=== PATIENT | male | born 1955 | race Caucasian/White ===

== ENCOUNTER 2017-03-19 10:11 | Emergency (ER) | payer OTHER ==
[2017-03-19] MEDS ORDERED: IV NORMAL SALINE 1,000ML 1,000 ML IV ONE (10:45)
[2017-03-19] MEDS ORDERED: KETOROLAC 30 MG/ML VIAL. IV ONE (10:45)
--- NOTE | 2017-03-19 10:45 | ED.ADGEN ---
Past History Past Medical History: Other Past Surgical History: No Surgical History Alcohol Use: None Drug Use: None Adult General Chief Complaint Chief Complaint R flank pain HPI HPI Patient is a 61 year old male who presents with R flank pain, noted 2 days ago when he woke and noted R flank pain with radiation to testicles, associated nausea but no vomiting. The pain is now localized to R flank, no radiation, and no nausea. Pt has had fluctuations of the pain, took home leftover hydrocodone and Tramadol with minimal relief. Decreased po intake, decreased urination, no BM since pain started, denies fevers, no noted hematuria. Pt's had h/o kidney stones in past, no intervention required but symptoms at this time is very similar to prior stones. Pt denies h/o HTN, pcp is Dr. Pierce. Review of Systems Review of Systems Constitutional: Denies fever or chills [] Eyes: Denies change in visual acuity, redness, or eye pain [] HENT: Denies nasal congestion or sore throat [] Respiratory: Denies cough or shortness of breath [] Cardiovascular: denies chest pain GI: Denies current abdominal pain : per hpi Musculoskeletal: Denies joint pain [] Integument: Denies rash or skin lesions [] Neurologic: Denies headache, focal weakness or sensory changes [] Current Medications Current Medications Current Medications Medications (Trade) Dose Ordered Sig/Tiffanie Start Time Stop Time Status Last Admin Dose Admin Ketorolac Tromethamine (Toradol) 30 mg 1X ONCE 03/19/17 10:45 03/19/17 10:52 DC 03/19/17 10:54 30 MG Ondansetron HCl (Zofran) 4 mg 1X ONCE 03/19/17 11:15 03/19/17 11:16 DC 03/19/17 10:53 4 MG Sodium Chloride 1,000 ml @ 1,000 mls/hr 1X ONCE 03/19/17 10:45 03/19/17 11:44 03/19/17 10:54 1,000 MLS/HR Allergies Allergies Allergies Coded Allergies Type Severity Reaction Last Updated Verified No Known Drug Allergies 03/19/17 No Physical Exam Physical Exam Constitutional: Well developed, well nourished, no acute distress, non-toxic appearance. [] HENT: Normocephalic, atraumatic, bilateral external ears normal, oropharynx moist, no oral exudates, nose normal. [] Eyes: PERRLA, EOMI, conjunctiva normal, no discharge. [] Neck: Normal range of motion, no tenderness, supple, no stridor. [] Cardiovascular:Heart rate regular with regular rhythm, no murmur [] Lungs & Thorax: Bilateral breath sounds clear to auscultation, no wheeze or crackles Abdomen: Bowel sounds normal, soft, no tenderness, no masses, no pulsatile masses. [] Skin: Warm, dry, no erythema, no rash. [] Back: ttp R flank with negative straight leg test, no midline ttp, no erythema or increased warmth, no fluctuance Extremities: No tenderness, no cyanosis, no clubbing, ROM intact, no edema. [] Neurologic: Alert and oriented X 3, normal motor function, normal sensory function, no focal deficits noted. [] Psychologic: Affect normal, judgement normal, mood normal. [] Current Patient Data Vital Signs Vital Signs Date Time Temp Pulse Resp B/P (MAP) Pulse Ox O2 Delivery O2 Flow Rate FiO2 03/19/17 11:24 80 18 148/98 (115) 99 Room Air 03/19/17 10:20 98.1 Lab Results Laboratory Tests Test 03/19/17 10:32 03/19/17 10:38 Urine Collection Type Unknown Urine Color [place] Urine Clarity Clear Urine pH 6.0 Urine Specific [place] 1.020 Urine Protein 30 mg/dl (NEG-TRACE) Urine Glucose (UA) Neg mg/dL (NEG) Urine Ketones (Stick) Trace mg/dL (NEG) Urine Blood Neg (NEG) Urine Nitrite Neg (NEG) Urine Bilirubin Neg (NEG) Urine Urobilinogen Dipstick 1 mg/dL (0.2 mg/dL) Urine Leukocyte Esterase Neg (NEG) Urine RBC Occ /HPF (0-2) Urine WBC Rare /HPF (0-4) Urine Squamous Epithelial Cells Occ /LPF Urine Bacteria 0 /HPF (0-FEW) Urine Mucus Slight /LPF White Blood Count 10.0 x10^3/uL (4.0-11.0) Red Blood Count 4.35 x10^6/uL (4.30-5.70) Hemoglobin 13.0 g/dL (13.0-17.5) Hematocrit 38.1 % (39.0-53.0) L Mean Corpuscular Volume 88 fL (79-100) Mean Corpuscular Hemoglobin 30 pg (25-35) Mean Corpuscular Hemoglobin Concent 34 g/dL (31-37) Red Cell Distribution Width 13.3 % (11.5-14.5) Platelet Count 195 x10^3/uL (140-400) Neutrophils (%) (Auto) 74 % (31-73) H Lymphocytes (%) (Auto) 11 % (24-48) L Monocytes (%) (Auto) 13 % (0-9) H Eosinophils (%) (Auto) 2 % (0-3) Basophils (%) (Auto) 1 % (0-3) Neutrophils # (Auto) 7.4 x10^3uL (1.8-7.7) Lymphocytes # (Auto) 1.1 x10^3/uL (1.0-4.8) Monocytes # (Auto) 1.3 x10^3/uL (0.0-1.1) H Eosinophils # (Auto) 0.2 x10^3/uL (0.0-0.7) Basophils # (Auto) 0.1 x10^3/uL (0.0-0.2) Sodium Level 137 mmol/L (136-145) Potassium Level 3.9 mmol/L (3.5-5.1) Chloride Level 98 mmol/L (98-107) Carbon Dioxide Level 32 mmol/L (21-32) Anion Gap 7 (6-14) Blood Urea Nitrogen 20 mg/dL (8-26) Creatinine 1.4 mg/dL (0.7-1.3) H Estimated GFR (Cockcroft-Gault) 51.7 BUN/Creatinine Ratio 14 (6-20) Glucose Level 106 mg/dL (70-99) H Calcium Level 9.2 mg/dL (8.5-10.1) Total Bilirubin 1.7 mg/dL (0.2-1.0) H Aspartate Amino Transferase (AST) 14 U/L (15-37) L Alanine Aminotransferase (ALT) 18 U/L (16-63) Alkaline Phosphatase 61 U/L (46-116) Total Protein 7.8 g/dL (6.4-8.2) Albumin 3.5 g/dL (3.4-5.0) Albumin/Globulin Ratio 0.8 (1.0-1.7) L EKG EKG [] Radiology/Procedures Radiology/Procedures CT abd/pelvis: Findings: Visualized lung bases are unremarkable. There is a 4 mm stone at the right ureterovesicular junction with mild right-sided hydronephrosis and prominence of the right ureter. Periureteric stranding is noted. There is a mildly prominent lymph node adjacent to the mid right ureter. Findings likely reactive. Small amount of free fluid is seen in the pelvis. The bladder is predominantly decompressed. There is perinephric stranding bilaterally. This is nonspecific. There are multiple small exophytic lesions arising from the right kidney largest in the superior pole measuring 2.3 cm in diameter. Attenuation's characteristics are suggestive of small cysts. No evidence of hydronephrosis or obstructive uropathy is seen on the left. The liver and gallbladder are grossly unremarkable. The spleen is unremarkable. The adrenal glands are unremarkable. Pancreas is within normal limits. There is no evidence of bowel obstruction. No acute inflammatory changes are seen in the bowel. No evidence of acute osseous abnormality is identified. Impression: 1. 4 mm stone at right ureterovesicular junction with mild right hydronephrosis. Periureteric inflammatory change and a small amount of free fluid noted in the pelvis 2. Nonspecific perinephric stranding bilaterally 3. No other acute intra-abdominal abnormalities are identified. Course & Med Decision Making Course & Med Decision Making Pertinent Labs and Imaging studies reviewed. (See chart for details) Pt given 1 L NS bolus, toradol and zofran IV. Discussed pros/cons of CT and pt would like to have CT performed. UA/labs ordered. Pt's symptoms improved, I explained all of the results and the need to schedule close follow-up to ensure Cr and BP improved, stone passed. If symptoms worsen , pt is to return for reevaluation. DC'd with rx for flomax, tramadol, norco, zofran, and miralax. Final Impression Final Impression Nephrolithiasis Elevated blood pressure Elevated Cr Problems: Dragon Disclaimer Dragon Disclaimer This electronic medical record was generated, in whole or in part, using a voice recognition dictation system. RANCHO FLORES MD Mar 19, 2017 10:45
[2017-03-19 10:51] LABS: CLARITY,URINE CLEAR; COLOR,URINE AMBER; GLUCOSE,URINE NEG (NEG)
[2017-03-19 10:52] LABS: BACTERIA,URINE 0 /HPF (0-FEW); BILIRUBIN,URINE NEG (NEG); NITRITE,URINE NEG (NEG); RBC,URINE OCC /HPF (0-2); SQUAMOUS EPITHELIAL CELL,UR OCC /LPF; UROBILINOGEN,URINE 1 mg/dL (0.2 mg/dL); WBC,URINE RARE /HPF (0-4)
[2017-03-19 10:56] LABS: BASO # 0.1 x10^3/uL (0.0-0.2); BASO % 1 % (0-3); EOS # 0.2 x10^3/uL (0.0-0.7); EOS % 2 % (0-3); HEMATOCRIT 38.1 % (39.0-53.0); LYMPH # 1.1 x10^3/uL (1.0-4.8); LYMPH % 11 % (24-48); MEAN CORPUSCULAR HEMOGLOBIN 30 pg (25-35); MEAN CORPUSCULAR HGB CONC 34 g/dL (31-37); MEAN CORPUSCULAR VOLUME 88 fL (79-100); MONO # 1.3 x10^3/uL (0.0-1.1); MONO % 13 % (0-9); NEUT # 7.4 x10^3uL (1.8-7.7); NEUT % 74 % (31-73); PLATELET COUNT 195 x10^3/uL (140-400); RED BLOOD COUNT 4.35 x10^6/uL (4.30-5.70); RED CELL DISTRIBUTION WIDTH 13.3 % (11.5-14.5)
--- NOTE | 2017-03-19 11:06 | RAD ---
CT of the abdomen and pelvis without contrast 03/19/2017 Indication: Right flank pain. Hematuria Study: None Technique: Multidetector CT imaging of the abdomen and pelvis is obtained without contrast. PQRS Compliance Statement: One or more of the following individualized dose reduction techniques were utilized for this examination: 1. Automated exposure control 2. Adjustment of the mA and/or kV according to patient size 3. Use of iterative reconstruction technique Findings: Visualized lung bases are unremarkable. There is a 4 mm stone at the right ureterovesicular junction with mild right-sided hydronephrosis and prominence of the right ureter. Periureteric stranding is noted. There is a mildly prominent lymph node adjacent to the mid right ureter. Findings likely reactive. Small amount of free fluid is seen in the pelvis. The bladder is predominantly decompressed. There is perinephric stranding bilaterally. This is nonspecific. There are multiple small exophytic lesions arising from the right kidney largest in the superior pole measuring 2.3 cm in diameter. Attenuation's characteristics are suggestive of small cysts. No evidence of hydronephrosis or obstructive uropathy is seen on the left. The liver and gallbladder are grossly unremarkable. The spleen is unremarkable. The adrenal glands are unremarkable. Pancreas is within normal limits. There is no evidence of bowel obstruction. No acute inflammatory changes are seen in the bowel. No evidence of acute osseous abnormality is identified. Impression: 1. 4 mm stone at right ureterovesicular junction with mild right hydronephrosis. Periureteric inflammatory change and a small amount of free fluid noted in the pelvis 2. Nonspecific perinephric stranding bilaterally 3. No other acute intra-abdominal abnormalities are identified.
[2017-03-19 11:09] LABS: ALBUMIN 3.5 g/dL (3.4-5.0); ALBUMIN/GLOBULIN RATIO 0.8 (1.0-1.7); CALCIUM 9.2 mg/dL (8.5-10.1); CREATININE 1.4 mg/dL (0.7-1.3); GFR 51.7; POTASSIUM 3.9 mmol/L (3.5-5.1); TOTAL BILIRUBIN 1.7 mg/dL (0.2-1.0); TOTAL PROTEIN 7.8 g/dL (6.4-8.2)
[2017-03-19] MEDS ORDERED: ONDANSETRON PF 4 MG/2 ML VIAL. IV ONE (11:15)
[2017-03-19 11:24] VITALS: BP 148/98
[2017-03-19] MEDS ORDERED: HYDR-971 PO (11:25)
[2017-03-19] MEDS ORDERED: POLY17PO5 PO (11:25)
[2017-03-19] MEDS ORDERED: ONDA4TAB10 SL (11:25)
[2017-03-19] MEDS ORDERED: TAMS0.4C97 PO (11:25)
[2017-03-19] MEDS ORDERED: TRAM50TA PO (11:25)
== END 2017-03-19 11:39 | disposition home or self-care (01) ==
LOC: ER 10:11
DX: N20.0 Calculus of kidney (principal); I10 Essential (primary) hypertension; R74.8 Abnormal levels of other serum enzymes; Z87.442 Personal history of urinary calculi
CPT/HCPCS: 36415; 74176; 80053; 81001; 85025; 96361; 96374; 96375; 99285; J1885; J2405; J7030